=== PATIENT | female | born 1995 | race Caucasian/White ===

== ENCOUNTER 2016-09-05 06:30 | Inpatient (IN) | payer MEDICAID ==
[~2016-09-05] VITALS: Ht 157.5 cm; Wt 76.6 kg
[~2016-09-05 06:30] MED LIST: NITR-58 PO
[2016-09-05 06:42] VITALS: BP 113/73; PULSE 67; RESP 20; BMI 30.4
[2016-09-05 07:29] VITALS: Ht 157.5 cm; Wt 76.6 kg
[2016-09-05 07:30] VITALS: BP 113/73; PULSE 67
[2016-09-05] MEDS ORDERED: PRENAT PO (07:31)
[2016-09-05] MEDS ORDERED: LACTATED RINGER'S 1,000 ML IV SCH (08:30)
[2016-09-05] MEDS ORDERED: MISOPROSTOL 200 MCG TAB PR PRN (09:00)
[2016-09-05] MEDS ORDERED: METHYLERGONOVINE 0.2 MG INJ IM PRN (09:00)
[2016-09-05] MEDS ORDERED: LACTATED RINGER'S 1,000 ML IV PRN (09:00)
[2016-09-05] MEDS ORDERED: LIDOCAINE 1% (MPF) 30 ML INJ INJ PRN (09:00)
[2016-09-05] MEDS ORDERED: OXYTOCIN 30 UNITS/LR 500 ML IV SCH ×3 (09:00)
[2016-09-05] MEDS ORDERED: CARBOPROST 250 MCG INJ IM PRN (09:00)
[2016-09-05] MEDS ORDERED: OXYTOCIN 30 UNITS/LR 500 ML IV PRN (09:00)
[2016-09-05] MEDS ORDERED: BUTORPHANOL 2 MG INJ IV PRN ×2 (09:00)
[2016-09-05 09:09] LABS: BASOPHILS % 0.3 % (0.0-2.0); EOSINOPHILS # 0.1 10^3/ul (0.0-0.5); EOSINOPHILS % 0.7 % (0.0-7.0); HEMATOCRIT 31.9 % (37.0-47.0); LYMPHOCYTES # 2.2 10^3/ul (0.8-2.9); LYMPHOCYTES % 29.5 % (15.0-51.0); MEAN CORPUSCULAR HEMOGLOBIN 24.2 pg (29.0-33.0); MEAN CORPUSCULAR HGB CONC 31.3 g/dl (32.0-37.0); MEAN CORPUSCULAR VOLUME 77.1 fl (82.0-101.0); MEAN PLATELET VOLUME 11.6 fl (7.4-10.4); MONOCYTE # 0.6 10^3/ul (0.3-0.9); MONOCYTES % 7.6 % (0.0-11.0); NEUTROPHIL # 4.5 10^3/ul (1.6-7.5); NEUTROPHILS % 61.4 % (39.0-77.0); PLATELET COUNT 247 10^3/UL (140-415); RED BLOOD COUNT 4.14 10^6/ul (4.20-5.40); RED CELL DISTRIBUTION WIDTH 15.6 % (11.5-14.5); WHITE BLOOD COUNT 7.4 10^3/ul (4.8-10.8)
[2016-09-05 09:10] LABS: ADD SCAN DIFF NO
[2016-09-05 09:12] LABS: INR 0.87; PROTIME 11.8 Sec (12.2-14.2); PT RATIO 0.9
[2016-09-05 09:13] LABS: PARTIAL THROMBOPLASTIN TIME 26.8 Sec (25.0-35.0)
[2016-09-05] MEDS: LACTATED RINGER'S 1,000 ML IV SCH ×2 (10:44→16:36)
[2016-09-05] MEDS ORDERED: MINERAL OIL LIGHT 10 ML VIAL TOP ONE (11:00)
[2016-09-05] MEDS ORDERED: DIPHENHYDRAMINE 50 MG INJ IV PRN (14:00)
[2016-09-05] MEDS ORDERED: HYDROmorphONE 1 MG/ML SYG IV PRN ×2 (14:00)
[2016-09-05] MEDS ORDERED: ONDANSETRON 4 MG INJ IV PRN (14:00)
[2016-09-05] MEDS ORDERED: FENTAnyl 2MCG/ML-ROPIV 0.2% 100 ML BAG EPI SCH (14:00)
[2016-09-05] MEDS ORDERED: NALOXONE (0.4 MG/ML) INJ IV PRN (14:00)
[2016-09-05] MEDS ORDERED: PROCHLORPERAZINE 10 MG INJ IV PRN (14:00)
[2016-09-05] MEDS ORDERED: KETOROLAC 30 MG INJ IV PRN (14:00)
[2016-09-05] MEDS ORDERED: ZOLPIDEM 5 MG TAB PO PRN (14:00)
--- NOTE | 2016-09-05 17:52 | HP ---
Date/Time of Note Date/Time of Note DATE: 09/05/16 TIME: 17:44 OB - History Hx of Present Free Text/Dictation 21 years old female 2 para 0 IAB EDC 09/13/2016 admitted at 38 weeks and 6 days [facility] in labor pelvic examination on admission cervix 5 cm dilated 100% effaced vertex -2 station contraction every 2-3 minute category 1 heart rate patient referred to L&D unit for expectant management for possible vaginal delivery Chief Complaint: Labor contract Estimated Due Date: Sep 09, 2016 : 2 Para: 0 Therapeutic : 1 Care: Limited Care Ultrasounds: Normal mid trimester US Obstetrical Complications: None Medical Complications: None Past Family/Social History * Past Medical, Surgical, Family and Obstetric Histories reviewed from chart. Rubella: immune RPR/VDRL: Negative GBS Status: Negative HBsAG: Negative OB Admission Exam Vital Signs Vital Signs Vital Signs Date Time Temp Pulse Resp B/P Pulse Ox O2 Delivery O2 Flow Rate FiO2 09/05/16 07:30 99.0 67 113/73 09/05/16 06:42 20 Room Air Physical Exam HEENT: WNL Heart: Rhythm Normal Lungs: Clear, Equal Abdomen: WNL Extremities: Normal Reflexes: Normal Cervical Dilatation: 5cm Effacement: 100% Station: -2 Membranes: Ruptured Amniotic Fluid: Clear Heart Rate: 130's Varibility: Moderate Contractions on Admission: < 5 Minutes Apart Intensity: Moderate Last 72 hours Lab Results CBC & BMP 09/05/16 08:20 OB Assessment/Plan Reason for admission: other (Term in active labor will continue expecting management for possible normal delivery) CLARENCE SELBY MD Sep 05, 2016 17:52
[2016-09-05 23:13] LABS: AADO2 Cord Arterial 67.6 mmHg; Arterial Cord Blood pCO2 51.7 mmHG (25-50); CBA Base Excess -6.2 mmol/L; CBA Oxygen Sat 41.6 mmHG; CBA Total Hemglobin 15.8 g/dl; Cord Blood Arterial pO2 20.2 mmHG (15.0-45.0); Fraction OxyHgb Cord Arterial 40.4 %; MODE ROOM AIR; MetHgb Cord Arterial 1.5 %
[2016-09-05 23:15] LABS: CBV Base Excess -6.2 mmol/L; CBV COHb 1.7 %; CBV Oxygen Sat 60.3 mmHG; Cord Blood Venous pO2 25.3 mmHG (15.0-45.0); Fraction OxyHgb Cord Venous 58.5 %; MODE ROOM AIR; MetHgb Cord Venous 1.3 %; Sample Type Blood venous
[2016-09-06] VITALS (11 sets, daily range): BP systolic 95–130; BP diastolic 55–81; PULSE 68–90; RESP 18–20
[2016-09-06] MEDS ORDERED: OXYCODONE/ASPIRIN (4.88/325) TAB PO PRN (02:00)
[2016-09-06] MEDS ORDERED: CARBOPROST 250 MCG INJ IM PRN (02:00)
[2016-09-06] MEDS ORDERED: DIPHENHYDRAMINE 50 MG INJ IV PRN (02:00)
[2016-09-06] MEDS ORDERED: WITCH HAZEL/GLYCERIN PAD PR PRN (02:00)
[2016-09-06] MEDS ORDERED: ONDANSETRON 4 MG INJ IV PRN (02:00)
[2016-09-06] MEDS ORDERED: METHYLERGONOVINE 0.2 MG INJ IM PRN (02:00)
[2016-09-06] MEDS ORDERED: ZOLPIDEM 5 MG TAB PO PRN (02:00)
[2016-09-06] MEDS ORDERED: MISOPROSTOL 200 MCG TAB PR PRN (02:00)
[2016-09-06] MEDS ORDERED: LACTATED RINGER'S 1,000 ML IV* SCH (02:00)
[2016-09-06] MEDS ORDERED: OXYTOCIN 30 UNITS/LR 500 ML IV PRN (02:00)
[2016-09-06] MEDS ORDERED: ACETAMINOPHEN 325 MG TAB PO PRN (02:00)
[2016-09-06] MEDS ORDERED: DEXTROSE 5%-LR 1,000 ML IV SCH (02:00)
[2016-09-06] MEDS ORDERED: DIBUCAINE 1% 30 GM OINT PR PRN (02:00)
[2016-09-06] MEDS ORDERED: BENZOCAINE 20% 56 ML SPRAY TOP PRN (02:00)
[2016-09-06] MEDS ORDERED: SENNA/DOCUSATE NA (8.6MG/50MG) TAB PO PRN (02:00)
--- NOTE | 2016-09-06 02:06 | LDN ---
Date/Time of Note Date/Time of Note DATE: 09/06/16 TIME: 02:03 Delivery Summary 21 y/o at 38 6/7 wks delivered a male over 2nd degree laceration. Weight: 8 lbs 9 Oz, time of delivery: 22: 42 on 09/05/16 Placenta Delivered: Spontaneously Episiotomy: No Estimated blood loss: 200 Sponge & Needle done & correct: Yes All needle counts correct: Yes Any foreign bodies felt in the: No Problems: Delivery Information Sex Sex: male Apgars 1 Minute: 8 5 Minute: 9 Suctioning Nose & mouth suctioned at rika: Yes Umbilical Cord Umbilical cord with: 3 Vessels Cord presentations: no nuchal cord Cord Blood was obtained: Yes DEIDRA VAUGHAN Sep 06, 2016 02:06
[2016-09-06] MEDS: LANOLIN 7 GM TUBE TOP PRN ×2 (03:39→09:52)
[2016-09-06] MEDS: IBUPROFEN 600 MG TAB PO SCH ×3 (06:17→17:30)
[2016-09-07] MEDS: IBUPROFEN 600 MG TAB PO SCH ×4 (00:47→17:35)
[2016-09-07 04:00] VITALS: BP 110/56; PULSE 66; RESP 17
[2016-09-07 08:00] VITALS: BP 100/62; PULSE 70; RESP 18
[2016-09-07 08:56] LABS: ADD SCAN DIFF NO
[2016-09-07 09:03] LABS: BASOPHILS % 0.3 % (0.0-2.0); EOSINOPHILS # 0.2 10^3/ul (0.0-0.5); EOSINOPHILS % 1.5 % (0.0-7.0); HEMATOCRIT 29.1 % (37.0-47.0); HEMOGLOBIN 8.9 g/dl (12.0-16.0); LYMPHOCYTES # 1.9 10^3/ul (0.8-2.9); MEAN CORPUSCULAR HEMOGLOBIN 24.1 pg (29.0-33.0); MEAN CORPUSCULAR HGB CONC 30.6 g/dl (32.0-37.0); MEAN CORPUSCULAR VOLUME 78.6 fl (82.0-101.0); MEAN PLATELET VOLUME 11.6 fl (7.4-10.4); MONOCYTE # 0.6 10^3/ul (0.3-0.9); MONOCYTES % 5.1 % (0.0-11.0); NEUTROPHIL # 8.9 10^3/ul (1.6-7.5); NEUTROPHILS % 76.5 % (39.0-77.0); PLATELET COUNT 214 10^3/UL (140-415); RED CELL DISTRIBUTION WIDTH 15.9 % (11.5-14.5); WHITE BLOOD COUNT 11.7 10^3/ul (4.8-10.8)
--- NOTE | 2016-09-07 10:01 | PD.PPDC ---
[employer] [employer] Discharge Instruction Condition Patient Condition: Good Diet Diet: Resume Regular Diet Activity/Restrictions Activity: Normal Activity May Shower Restrictions: No Exercising No Lifting No Driving No Sexual Activity Nothing in the Vagina No [place] No Tampons, douche Follow-up Follow-up with Physician: 2, Week/Weeks Provider Information: Vision received instruction recommended to make appointment to be seen at the clinic in 2 weeks Return to clinic for TRANSFER COORDINATOR Instructions: Fever greater than 101 Chills Worsening abdominal pain Excessive Vaginal Bleeding More than 2 pads per hour Unable to tolerate diet OB Instructions: Breast Tenderness Depression Blurried Vision Headache CLARENCE SELBY MD Sep 07, 2016 10:01
--- NOTE | 2016-09-07 10:04 | DS ---
Date/Time of Note Date/Time of Note DATE: 09/07/16 TIME: 10:03 Discharge Summary Admission/Discharge Info Admit Date/Time Sep 05, 2016 at 08:53 Discharge Date/Time September 07, 2016 at 10:00 Discharge Diagnosis Post normal vaginal delivery day 2 Patient Condition: Good Procedures Normal vaginal delivery Hx of Present Illness Term in labor Hospital Course Satisfactory uneventful Home Meds Active Scripts Nitrofurantoin Monohyd Macrocr* (Macrobid*) 100 Mg Capsr, 100 MG PO BID for 14 Days, CAP Prov:CAROLYN JOE PA-C 02/02/16 Reported Medications Multivit/Min/Fol Ac/Iron/Pren* ( S*) 1 Tab Tab, 1 TAB PO DAILY, TAB 09/05/16 Follow-up Plan instruction given recommended to make appointment in 2 weeks with the clinic Primary Care Provider Care Physician No Primary Time spent on discharge: < 30 minutes Pending Labs Laboratory Tests Test 09/07/16 08:28 White Blood Count 11.710^3/ul (4.8-10.8) Red Blood Count 3.7010^6/ul (4.20-5.40) Hemoglobin 8.9g/dl (12.0-16.0) Hematocrit 29.1% (37.0-47.0) Mean Corpuscular Volume 78.6fl (82.0-101.0) Mean Corpuscular Hemoglobin 24.1pg (29.0-33.0) Mean Corpuscular Hemoglobin Concent 30.6g/dl (32.0-37.0) Red Cell Distribution Width 15.9% (11.5-14.5) Platelet Count 63433^3/UL (140-415) Mean Platelet Volume 11.6fl (7.4-10.4) Neutrophils % 76.5% (39.0-77.0) Lymphocytes % 16.0% (15.0-51.0) Monocytes % 5.1% (0.0-11.0) Eosinophils % 1.5% (0.0-7.0) Basophils % 0.3% (0.0-2.0) Nucleated Red Blood Cells % 0.0/100WBC (0.0-0.0) Neutrophils # 8.910^3/ul (1.6-7.5) Lymphocytes # 1.910^3/ul (0.8-2.9) Monocytes # 0.610^3/ul (0.3-0.9) Eosinophils # 0.210^3/ul (0.0-0.5) Basophils # 0.010^3/ul (0.0-0.1) Nucleated Red Blood Cells # 0.010^3/ul (0.0-0.0) CLARENCE SELBY MD Sep 07, 2016 10:04
--- NOTE | 2016-09-07 10:08 | DS ---
Date/Time of Note Date/Time of Note DATE: 09/07/16 TIME: 10:07 Discharge Summary Admission/Discharge Info Admit Date/Time Sep 05, 2016 at 08:53 Discharge Date/Time September 07, 2016 10 AM Discharge Diagnosis Post normal vaginal delivery day 2 Patient Condition: Good Procedures Normal vaginal delivery Hx of Present Illness Term in labor Hospital Course Satisfactory uneventful Home Meds Reported Medications Multivit/Min/Fol Ac/Iron/Pren* ( S*) 1 Tab Tab, 1 TAB PO DAILY, TAB 09/05/16 Discontinued Scripts Nitrofurantoin Monohyd Macrocr* (Macrobid*) 100 Mg Capsr, 100 MG PO BID for 14 Days, CAP Prov:CAROLYN JOE PA-C 02/02/16 Follow-up Plan Appointment clinic in 2 weeks for check Primary Care Provider Care Physician No Primary Time spent on discharge: < 30 minutes Pending Labs Laboratory Tests Test 09/07/16 08:28 White Blood Count 11.710^3/ul (4.8-10.8) Red Blood Count 3.7010^6/ul (4.20-5.40) Hemoglobin 8.9g/dl (12.0-16.0) Hematocrit 29.1% (37.0-47.0) Mean Corpuscular Volume 78.6fl (82.0-101.0) Mean Corpuscular Hemoglobin 24.1pg (29.0-33.0) Mean Corpuscular Hemoglobin Concent 30.6g/dl (32.0-37.0) Red Cell Distribution Width 15.9% (11.5-14.5) Platelet Count 27561^3/UL (140-415) Mean Platelet Volume 11.6fl (7.4-10.4) Neutrophils % 76.5% (39.0-77.0) Lymphocytes % 16.0% (15.0-51.0) Monocytes % 5.1% (0.0-11.0) Eosinophils % 1.5% (0.0-7.0) Basophils % 0.3% (0.0-2.0) Nucleated Red Blood Cells % 0.0/100WBC (0.0-0.0) Neutrophils # 8.910^3/ul (1.6-7.5) Lymphocytes # 1.910^3/ul (0.8-2.9) Monocytes # 0.610^3/ul (0.3-0.9) Eosinophils # 0.210^3/ul (0.0-0.5) Basophils # 0.010^3/ul (0.0-0.1) Nucleated Red Blood Cells # 0.010^3/ul (0.0-0.0) CLARENCE SELBY MD Sep 07, 2016 10:08
[2016-09-07 16:12] VITALS: BP 116/62; PULSE 83; RESP 19
[2016-09-08] MEDS ORDERED: DIPHTH/TET/ACEL PERTUSS (ADULT) 0.5 ML VIAL IM* ONE (09:00)
[2016-09-08] MEDS ORDERED: MEASLES,MUMPS,RUBELLA VACCINE INJ SC* ONE (09:00)
== END 2016-09-07 18:00 | disposition home or self-care (01) | DRG 775 ==
LOC: OBT 06:30 → L-D 06:30 → OBT 08:51 → L-D 08:53 → PP1 09-06 02:18
PROVIDERS: ADMIT Obstetrics & Gynecology; ATTEND Obstetrics & Gynecology
PROC: 10E0XZZ Delivery of Products of Conception, External Approach (ICD-10-PCS; principal; 2016-09-06)
PROC: 0KQM0ZZ Repair Perineum Muscle, Open Approach (ICD-10-PCS; 2016-09-06)
DX: O70.1 Second degree perineal laceration during delivery (principal); Z37.0 Single live birth; Z3A.38 38 weeks gestation of pregnancy
CPT/HCPCS: 36415; 36600; 62319; 82803; 84112; 85025; 85610; 85730; 86592; 86900; 86901; 99464; G0463; J0595; J2405; J2590; J3010; J7120; J7121